=== PATIENT | male | born 1950 | race Caucasian/White ===

== ENCOUNTER → 2024-05-16 13:47 | Outpatient (REF) | payer MEDICARE, SELFPAY | LOC: HWRAD 13:47 | PROVIDERS: ATTENDING PHYSICIAN Specialist; FAMILY PHYSICIAN Family Medicine | DX: R33.8 Other retention of urine (principal) | CPT/HCPCS: 76770 ==

== ENCOUNTER 2024-05-29 06:21 | Day surgery (SDC) | payer MEDICARE, SELFPAY | END 2024-05-29 13:47 | disposition home or self-care (01) | LOC: GI 06:21 | PROVIDERS: ATTENDING PHYSICIAN Internal Medicine Gastroenterology; FAMILY PHYSICIAN Family Medicine | DX: Z12.11 Encounter for screening for malignant neoplasm of colon (principal); K57.30 Diverticulosis of large intestine without perforation or abscess without bleeding; K64.8 Other hemorrhoids; D12.2 Benign neoplasm of ascending colon; Z86.0100 Personal history of colon polyps, unspecified | CPT/HCPCS: 45385; 88305 ==

== ENCOUNTER → 2024-08-28 14:16 | Outpatient (REF) | payer MEDICARE, SELFPAY | LOC: RCS 14:16 | PROVIDERS: ATTENDING PHYSICIAN Nuclear Medicine Nuclear Cardiology; FAMILY PHYSICIAN Family Medicine | DX: I25.10 Atherosclerotic heart disease of native coronary artery without angina pectoris (principal); I49.3 Ventricular premature depolarization | CPT/HCPCS: 93306 ==